=== PATIENT | female | born 1985 | race Two or more races ===

== ENCOUNTER 2023-12-13 17:14 | Emergency (ER) | payer MEDICAID, OTHER ==
[~2023-12-13] VITALS: Ht 172.7 cm; Wt 79.5 kg
[2023-12-13 17:30] VITALS: BP 199/114; PULSE 81; RESP 16; O2SAT 99
[2023-12-13] MEDS: amLODIPine BESYLATE 5 MG TAB PO ONE (17:36)
[2023-12-13 19:19] LABS: Basophils # (auto) 0 10 ^3/uL (0-0.2); Basophils % (auto) 0.7 % (0.0-2.0); Eosinophils # (auto) 0.1 10 ^3/uL (0-0.8); Eosinophils % (auto) 1.2 % (0.0-7.0); Hematocrit 38.4 % (36.0-46.0); Lymphocytes # (auto) 2.7 10 ^3/uL (0.4-5.4); Lymphocytes % (auto) 45.3 % (10.0-50.0); Mean Corpuscular Hemoglobin 29.8 pg (28.0-32.0); Mean Corpuscular Volume 87.9 fL (80.0-100.0); Monocytes # (auto) 0.3 10 ^3/uL (0-1.3); Monocytes % (auto) 5.3 % (0.0-12.0); Neutrophils # (auto) 2.9 10 ^3/uL (1.6-8.6); Neutrophils % (auto) 47.5 % (37.0-80.0); Red Blood Cells 4.37 10^6/uL (4.0-5.20); Red Cell Distribution Width 13.2 % (11.8-14.3)
[2023-12-13 19:42] LABS: Chloride 105 mmol/L (98-107); Potassium 3.6 mmol/L (3.5-5.1); Sodium 139 mmol/L (136-145)
[2023-12-13 19:43] LABS: Anion Gap 5 (5-15); Calcium 9.6 mg/dL (8.5-10.1); Carbon Dioxide 29 mmol/L (20-30)
[2023-12-13 19:48] LABS: BUN/Creatinine Ratio 12.3 (10.0-20.0); Blood Urea Nitrogen 9 mg/dL (9-23); Glucose 85 mg/dL (74-106)
[2023-12-13] MEDS ORDERED: LISI-275 PO (20:04)
== END 2023-12-14 01:10 | disposition home or self-care (01) ==
LOC: ER 17:14
DX: G43.909 Migraine, unspecified, not intractable, without status migrainosus (principal); I16.0 Hypertensive urgency; I10 Essential (primary) hypertension
CPT/HCPCS: 36415; 70450; 80048; 84484; 85025

== ENCOUNTER 2024-05-11 20:36 | Emergency (ER) | payer MEDICAID ==
[~2024-05-11] VITALS: Ht 175.3 cm; Wt 74.2 kg
[~2024-05-11 20:36] MED LIST: LISI-275 PO
[2024-05-11 22:37] VITALS: BP 156/118; PULSE 80; RESP 17; TEMP 98.2; O2SAT 97
[2024-05-11] MEDS: HYDROcodone-ACET 5/325MG TAB PO ONE (22:39)
[2024-05-12] MEDS ORDERED: IBUP1TAB5 PO (00:20)
[2024-05-12] MEDS ORDERED: CYCL-837 PO (00:20)
[2024-05-12] MEDS: KETOROLAC TROMETH 30 MG/ML 1ML VIAL IM ONE (00:59)
== END 2024-05-12 00:50 | disposition home or self-care (01) ==
LOC: ER 20:36
DX: R51.9 Headache, unspecified (principal); M54.2 Cervicalgia; M54.50 Low back pain, unspecified; I10 Essential (primary) hypertension; Z88.0 Allergy status to penicillin; V43.62XA Car passenger injured in collision with other type car in traffic accident, initial encounter; Y93.89 Activity, other specified; Y92.488 Other paved roadways as the place of occurrence of the external cause; Y99.8 Other external cause status
CPT/HCPCS: 96372; 99283; J1885